=== PATIENT | female | born 1980 | race Caucasian/White ===

== ENCOUNTER 2024-03-31 17:52 | Outpatient (CLI) | payer BC, SELFPAY ==
--- OUTSIDE RECORDS SUMMARY | 2024-03-31 17:54 | XMS_ITS | Clinical Summary ---
Author Organization [employer] [facility] [employer] Address [place], [place] [address] Care Team Providers Care Shuttle Operator Name Role Phone Holly Perkins DO Primary Care Provider [phone] Allergies Active Allergy Reactions Criticality Noted Date Comments Kiwi Itching 11/05/2006 Medications Medication Sig Dispensed Refills Start Date End Date Status naproxen (ALEVE) 220 mg tablet Take 2 tablets by mouth 2 times daily with meals. 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 started antiviral at 30 weeks for concerns of possible HSV flare up, but no lesions at that time. Holly Perkins D.O. 10/31/2012 9:04 AM Started acyclovir at 30 weeks for symptoms of HSV-pain, no notable lesions seen. Continue through delivery at this time. Holly Perkins D.O. 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 Contraception 10/05/2009 06/10/2012 Other abnormal Papanicolaou smear of cervix and cervical HPV(795.09) 11/05/2006 07/16/2012 Overview: colpo 11/05 normal Contraceptive surveillance, unspecified 11/05/2006 10/05/2009 Immunizations Name Administration Dates Next Due Hepatitis B (Adult) 11/18/2003,06/24/2003,2002 Human Papilloma Virus Vaccine 04/16/2008, 008,12/27/2006 Influenza, IIV3 (Age >=3 years) 07/21/2012 MMR 02/11/1992 Rabies Vaccine 05/18/2016,05/11/2016,05/07/2016 ,05/04/2016 Td (Age >=7 Years) 05/17/2006,12/31/1996 Tdap 11/21/2012 Family History Medical History Relation Name Comments Heart Disease Father 2 stents 07/09 Hypertension Father Cancer-breast Maternal Aunt Cancer-breast Maternal Grandmother Heart Disease Maternal Grandmother Arthritis Mother Cancer-breast Paternal Aunt Cancer Paternal Grandfather lung Heart Disease Paternal Grandfather Psychiatric illness Paternal Grandmother depression Psychiatric illness Sister 2 depressi on Relation Name Status Comments Father Alive Maternal Aunt Maternal Grandfather Alive Maternal Grandmother CVA Mother Alive Paternal Aunt Paternal Grandfather lung ca , CHF Paternal Grandmother Alive Sister 1 Alive Sister 2 Social History Tobacco Use Types Packs/Day Years Used Date Smoking Tobacco: Former Cigarettes 0.3 2 0 01/01/2002 - 01/02/2004 Smokeless Tobacco: Never Tobacco Cessation:Counseling Given: Yes Alcohol Use Standard Drinks/Week Comments Yes 0 (1 standard drink = 0.6 oz pure alcohol) special occassions 0-1 per month PHQ-2 Answer Date Recorded PHQ-2 Score 1 12/29/2018 Sex and Gender Information Value Date Recorded Sex Assigned at Not on file Gender Identity Not on file Sexual Orientation Not on file Obstetrics History Para Term AB IAB SAB Ectopic Multiple Livin g Live Births 2 1 0 1 1 0 1 0 0 1 1 Date Outcome GA Total Labor Labor/2nd/3rd Weight Sex Type Anes PTL Madiha A1 A5 Name Clin 2012 34w 3d 2.77 kg (6 lb 1.7 oz) M C-Sec tion Spinal Y Livin g 9 9 Donte Trotter a Delivery Location:[facility] Comments:pPROM, active HSV 2016 SAB 5w0 d Last Filed Vital Signs Vital Sign Reading Time Taken Comments Blood Pressure 122/67 08/26/2019 6:19 PM REGIONAL LIAISON Pulse 71 08/26/2019 6:19 PM REGIONAL LIAISON Temperature 36.6 ??C (97.8 ??F) 08/26/2019 6:19 PM CS T Respiratory Rate 18 08/26/2019 6:19 PM REGIONAL LIAISON Oxygen Saturation 100% 08/26/2019 6:19 PM REGIONAL LIAISON Inhaled Oxygen Concentration - - Weight 54 kg (119 lb 0.8 oz) 08/26/2019 6:19 PM REGIONAL LIAISON Height 160 cm (5' 3) 08/26/2019 6:25 PM REGIONAL LIAISON Body Mass Index 21.09 08/26/2019 6:19 PM REGIONAL LIAISON Plan of Treatment Health Maintenance Due Date Last Done Comments Depression screening for age 12+ 12/30/2019 12/29/2018, 12/29/2018, 12/16/2017, Additional history exists BMI (ht and wt on same day) for age 18+ 06/15/2020 06/15/2019, 12/29/2018, 12/16/2017, Additional history exists Tetanus booster 11/21/2022 11/21/2012, 04/30, 12/31/1996 COVID-19 vaccine series ( season) 2023 Pap test for age 21-65 12/30/2023 9, 12/29/2018, 10/16/2013, Additional history exists Influenza for age 9-49 05/31/2024 07/21/2012 Tdap Completed 11/21/2012 HIV for age 15-65 Completed 06/03/2015, 06/19/2012 Hepatitis C screening for age 18-79 Completed 06/03/2015, 11/06/2005, 07/27/2004 Pneumococcal series for age 6-64 Aged Out No longer eligible based on patient's age to complete this topic Procedures Procedure Name Priority Date/Time Associated Diagnosis Comments BONDED STRUCTURES REPAIRER THIN PREP PAP SCREEN IMAGED Routine 12/29/2018 12:27 PM CDT Screening for cervical cancer ANTI HIV 1/2 Routine 06/03/2015 4:17 PM CDT Exposure to blood or body fluid ANTI HCV Routine 06/03/2015 4:17 PM CDT Exposure to blood or body fluid from Last 3 Months or Most Recently Relevant to Health Maintenance Results * BONDED STRUCTURES REPAIRER THIN PREP PAP SCREEN IMAGED (12/29/2018 12:27 PM CDT) Case Report Gynecologic Cytology Report ? Case: [id number] ? Authorizing Provider: ??Holly Perkins DO ? Collected: ? 12/29/2018 1227 ? Ordering Location: ? [facility] ?? Received: ?12/29/2018 1227 ? Clinic ? First Screen: ?Vasquez, Vickie ? Specimen: ?BONDED STRUCTURES REPAIRER ThinPrep Vial Screening, Cervical ? 01/07/2019 1:57 PM CDT [facility] INTERPRETATION/ RESULT NEGATIVE FOR INTRAEPITHELIAL LESION OR MALIGNANCY (NIL) (none) 01/07/2019 1:57 PM CDT [facility] NISM(S) Shift in ibis suggestive of bacterial vaginosis 01/07/2019 1:57 PM CDT [facility] SPECIMEN ADEQUACY Satisfactory for evaluation Endocervical component present 01/07/2019 1:57 PM CDT [facility] HPV REQUEST HPV and PAP 01/07/2019 1:57 PM CDT [facility] Date of LMP 12/18/2018 01/07/2019 1:57 PM CDT [facility] Last Pap Date 201301/07/2019 1:57 PM CDT [facility] Last Pap Result NIL 9 1:57 PM CDT [facility] Abnormal Pap or [place] Bx in last 5 years No 01/07/2019 1:57 PM [facility]T [facility] Menstrual Status Regular Periods 01/07/2019 1:57 PM CDT [facility] [place] Bx Done Today No 01/07/2019 1:57 PM CDT [facility] Additional Information None given 01/07/2019 1:57 PM T [facility] Automated Review Successful 01/07/2019 1:57 PM CDT [facility] Comment:Specimen processed s uccessfully by automated paper supervisor device, ThinPrep Imaging System, [employer] ANCILLARY TESTING BONDED STRUCTURES REPAIRER HPV Ordered, Please see separate report 01/07/2019 1:57 PM T [facility] Note The pap test is a screening technique, not a diagnostic procedure. ??It is used primarily to screen for squamous cancers and precursor lesions. ??Published studies have shown that it is subject to both false negative and false positive results. ??The pap test should not be used as the sole means to diagnose or exclude pre-malignant and malignant lesions. Cytology is screened and interpreted at [facility] - [address], [place] [address] and [facility] - [address] [place] [address]; [place] [address] and [facility] - [address]; [place] [address] and [facility] [address]; [place] [address] 01/07/2019 1:57 PM CDT [facility] Other (Cervical) Non-Blood / Unknown 12/29/2018 12:27 PM CDT 12/29/2018 12:27 PM CDT Holly Perkins DO PATHOLOGY/CYTOLOGY [facility] [address] [place] [address], [place] * ANTI HCV (06/03/2015 4:17 PM CDT) HEPATITIS C ANTIBODY Non-Reacti ve Non-Reacti ve 06/03/2015 8:34 PM CDT [facility] Blood specimen (specimen) BLOOD SPECIMEN / Unknown Venipuncture / Unknown 06/03/2015 4:17 PM CDT 06/03/2015 4:17 PM CDT Narrative [facility] - 06/03/2015 8:34 PM CDT Antibodies to HCV not detected; does not exclude the possibility of exposure to HCV. Holly Perkins DO SEND OUTS [facility] [address] [place] [address], [place] * ANTI HIV 1/2 (06/03/2015 4:17 PM CDT) HIV-1/HIV-2 ANTIBODY Non-Reacti ve Non-Reacti ve 06/03/2015 8:30 PM CDT [facility] Blood specimen (specimen) BLOOD SPECIMEN / Unknown Venipuncture / Unknown 06/03/2015 4:17 PM CDT 06/03/2015 4:17 PM CDT Narrative [facility]AL [facility] - 06/03/2015 8:30 PM CDT HIV-1 p24 and HIV-1/HIV-2 Ab not detected Holly Perkins DO SEND OUTS [facility] [address] [place] [address], from Last 3 Months or Most Recently Relevant to Health Maintenance Advance Directives * Full Code (Latest Code Status on File) Date Activated Date Inactivated Comments 01/01/2013 11:22 AM 01/04/2013 3:13 PM * Full Code Date Activated Date Inactivated Comments 01/01/2013 7:15 AM 01/01/2013 9:49 AM Care Teams Shuttle Operator Relationship Specialty Start Date End Date Holly Perkins DO [address] [place] [address] PCP - General 06/10/08
== END 2024-03-31 17:53 | disposition home or self-care (01) ==
PROVIDERS: PCP Family Medicine; Visit Provider Physician Assistant
DX: R39.15 Urgency of urination (principal)
CPT/HCPCS: 87086

== ENCOUNTER 2024-04-17 15:41 | Outpatient (CLI) | payer BC, SELFPAY ==
--- OUTSIDE RECORDS SUMMARY | 2024-04-17 15:43 | XMS_ITS | Clinical Summary ---
Author Organization [employer] [facility] [employer] [facility] Address [place], [place] [address] Care Team Providers Care Tunnel Kiln Operator Name Role Phone Holly Perkins DO Primary Care Provider Allergies Active Allergy Reactions Criticality Noted Date [...] 11/05 normal Contraceptive surveillance, unspecified 11/05/2006 10/05/2009 Encounters Date Type Department Care Team Description 04/01/2024 Lab Requisition [facility] [phone] Bere Perez PA-C from Last 3 Months Immunizations Name Administration Dates Next Due Hepatitis [...] tion Spinal Y Livin g 9 9 Eero Ladell a Delivery Location:[facility] Comments:pPROM, active HSV 2016 SAB 5w0 d Last Filed Vital Signs Vital Sign Reading Time Taken Comments Blood Pressure 122/67 08/26/2019 6:19 PM QUALITY CONTROL INSPECTOR Pulse 71 08/26/2019 6:19 PM QUALITY CONTROL INSPECTOR Temperature 36.6 ??C (97.8 ??F) 08/26/2019 6:19 PM CS T Respiratory Rate 18 08/26/2019 6:19 PM QUALITY CONTROL INSPECTOR Oxygen Saturation 100% 08/26/2019 6:19 PM QUALITY CONTROL INSPECTOR Inhaled Oxygen Concentration - - Weight 54 kg (119 lb 0.8 oz) 08/26/2019 6:19 PM QUALITY CONTROL INSPECTOR Height 160 cm (5' 3) 08/26/2019 6:25 PM QUALITY CONTROL INSPECTOR Body Mass Index 21.09 08/26/2019 6:19 PM QUALITY CONTROL INSPECTOR Plan of Treatment Health Maintenance Due Date Last Done Comments Depression screening for age 12+ 12/30/2019 12/29/2018, 12/29/2018, 12/16/2017, Additional history exists BMI (ht and wt on same day) for age 18+ 06/15/2020 06/15/2019, 12/29/2018, 12/16/2017, Additional history exists Tetanus booster 11/21/2022 11/21/2012, 04/30, 12/31/1996 COVID-19 vaccine series ( season) 2023 Colonoscopy through age 75 2024 Lipids for age 45-75 2024 12/29/2018, 11/19/19 15 Mammogram for age 45-75 2024 Influenza for age 9-49 05/31/2024 07/21/2012 Pap test for age 21-65 03/31/2029 4, 03/31/2024, 12/29/2018, Additional history exists Tdap Completed 11/21/2012 HIV for age 15-65 Completed 06/03/2015, 06/19/2012 Hepatitis C screening for age 18-79 Completed 06/03/2015, 11/06/2005, 07/27/2004 Pneumococcal series for age 6-64 Aged Out No longer eligible based on patient's age to complete this topic Procedures Procedure Name Priority Date/Time Associated Diagnosis Comments LAB TRACKING EVENT Routine 03/31/2024 5: 52 PM CDT DATA ENTRY ASSISTANT THIN PREP PAP SCREEN IMAGED Routine 03/31/2024 5:52 PM CDT HPV THIN PREP Routine 03/31/2024 5:52 PM CDT LIPID PANEL W REFLEX MEASURED LDL Routine 12/29/2018 12:23 PM CDT Screening cholesterol level ANTI HIV 1/2 Routine 06/03/2015 4:17 PM CDT Exposure to blood or body fluid ANTI HCV Routine 06/03/2015 4:17 PM CDT Exposure to blood or body fluid from Last 3 Months or Most Recently Relevant to Health Maintenance Results * LAB TRACKING EVENT (03/31/2024 5:52 PM CDT) Other (Other) Client Collect / Unknown 03/31/2024 5:52 PM CDT 04/01/2024 3:58 PM CDT Bere Perez PA-C LAB BILL ONLY [facility] [address] [place] [address], * DATA ENTRY ASSISTANT THIN PREP PAP SCREEN IMAGED (03/31/2024 5:52 PM CDT) Case Report Gynecologic Cytology Report ? Case: [id number] ? Authorizing Provider: ??Bere Perez PA-C ?Collected: ? 03/31/2024 1752 ? Ordering Location: ? [facility] ?Received: ?04/03/2024 1257 ? First Screen: ?Vandana, Amy ? Pathologist: ? Pratibha Fernandes ? MD Susan ? Specimen: ?DATA ENTRY ASSISTANT ThinPrep Vial Screening, Cervical ? 04/13/2024 11:07 AM [facility] INTERPRETATION/ RESULT NEGATIVE FOR INTRAEPITHELIAL LESION OR MALIGNANCY (NIL) (none) 04/13/2024 11:07 AM [facility] [employer] [facility]-C ENTRAL LABORATORY R NON-NEOPLASTIC FINDING(S) Parakeratosis Hyperkeratosis 04/13/2024 11:07 AM T [facility] SPECIMEN ADEQUACY Satisfactory for evaluation No endocervical component seen 04/13/2024 11:07 AM CDT [facility] [employer] [facility] HPV REQUEST HPV and PAP 04/13/2024 11:07 AM CDT [facility] Date of LMP 03/25/2024 04/13/2024 11:07 AM CDT [facility] Last Pap Date 04/13/2024 11:07 AM CDT [facility] Comment:2019 Last Pap Result NIL 11:07 AM CDT [facility] Abnormal Pap or [place] Bx in last 5 years No 04/13/2024 11:07 AM CDT [facility] Menstrual Status Regular Periods 04/13/2024 11:07 AM CDT [facility] [place] Bx Done Today No 04/13/2024 11:07 AM CDT [facility] Additional Information 04/13/2024 11:07 AM CDT [facility] Comment: Interpreted at [facility] - [address] [place], [place] [address], [place] [address] Automated Review Successful 04/13/2024 11:07 AM T [facility] Comment:Specimen processed s uccessfully by automated marine oil terminal superintendent device, ThinPrep Imaging System, [employer] ANCILLARY TESTING DATA ENTRY ASSISTANT HPV Ordered, Please see separate report 04/13/2024 11:07 AM T [facility] Note The pap test is a screening technique, not a diagnostic procedure. It is used primarily to screen for squamous cancers and precursor lesions. Published studies have shown that it is subject to both false negative and false positive results. The pap test should not be used as the sole means to diagnose or exclude pre-malignant and malignant lesions. 04/13/2024 11:07 AM T [facility] Other (Cervical) 03/31/2024 5:52 PM CDT 04/03/2024 12:57 PM CDT December Gualberto Perez PA-C PATHOLOGY/CYTOLOGY [facility] [address] [place] [id number], * HPV HIGH RISK (03/31/2024 5:52 PM CDT) TYPE 16 Negative Negative 04/07/2024 2:23 PM CDT [facility] TYPE 18 Negative Negative 04/07/2024 2:23 PM CDT [facility] OTHER HIGH RISK TYPES Negative Negative 04/07/2024 2:23 PM CDT [facility] Other (Cervical) 03/31/2024 5:52 PM CDT 04/03/2024 12:57 PM CDT Narrative [facility] - 04/07/2024 2:23 PM CDT HPV types 16, 18, 31, 33, 35, 39, 45, 51, 52, 56, 58, 59, 66 and 68 DNA were undetectable or below the pre-set threshold. Methodology: [employer] 4800 HPV Test December Gualberto Perez PA-C MICROBIOLOGY [facility] [address] [place] [address], * LIPID PANEL W REFLEX MEASURED LDL (12/29/2018 12:23 PM CDT) CHOLESTEROL,TOTAL 169 100 - 199 mg/dL 12/29/2018 4:15 PM CDT [facility] TRIGLYCERIDES 61 <150 mg/dL 12/29/2018 4:15 PM CDT [facility] HDL CHOLESTEROL 56 >40 mg/dL 9 4:15 PM CDT [facility] NON-HDL CHOLESTEROL 113 <145 mg/dl 12/29/2018 4:15 PM CDT [facility] CHOL/HDL RATIO 3.02 <4.50 12/29/2018 4:15 PM CDT [facility] LDL CHOLESTEROL 101 <=130 mg/dL 12/29/2018 4:15 PM CDT [facility] PROVIDER ORDERED STATUS RANDOM 12/29/2018 4:15 PM CDT [facility] Blood BLOOD SPECIMEN / Unknown Venipuncture / Unknown 12/29/2018 12:23 PM CDT 12/29/2018 12:23 PM CDT Holly Perkins DO CHEMISTRY [facility] [address] [place] [address], * ANTI HCV (06/03/2015 4:17 PM CDT) HEPATITIS C ANTIBODY Non-Reacti ve Non-Reacti ve 06/03/2015 8:34 PM CDT [facility] Blood specimen (specimen) BLOOD SPECIMEN / Unknown Venipuncture / Unknown 06/03/2015 4:17 PM CDT 06/03/2015 4:17 PM CDT Narrative [facility] - 06/03/2015 8:34 PM CDT Antibodies to HCV not detected; does not exclude the possibility of exposure to HCV. Holly Perkins DO SEND OUTS Performing Organization Address [facility]/ZIP Co de Phone Number [facility] [address] [place] [address], [place] * ANTI HIV 1/2 (06/03/2015 4:17 PM CDT) HIV-1/HIV-2 ANTIBODY Non-Reacti ve Non-Reacti ve 06/03/2015 8:30 PM CDT [facility] Blood specimen (specimen) BLOOD SPECIMEN / Unknown Venipuncture / Unknown 06/03/2015 4:17 PM CDT 06/03/2015 4:17 PM CDT Narrative [facility] - 06/03/2015 8:30 PM CDT HIV-1 p24 and HIV-1/HIV-2 Ab not detected Holly Perkins DO SEND OUTS [facility] LAB[facility] [address] [place] [address], from Last 3 Months or Most Recently Relevant to Health Maintenance Advance Directives * Full Code (Latest Code Status on File) Date Activated Date Inactivated Comments 01/01/2013 11:22 AM 01/04/2013 3:13 PM * Full Code Date Activated Date Inactivated Comments 01/01/2013 7:15 AM 01/01/2013 9:49 AM Care Teams Tunnel Kiln Operator Relationship Specialty Start Date End Date Holly Perkins [place] [place] [address] PCP - General 06/10/08
--- NOTE | 2024-04-17 16:00 | CRLHL7_ITS ---
For Patients: As a result of the Century Cures Act, medical imaging exams and procedure reports are released immediately into your electronic medical record. You may view this report before your referring provider. If you have questions, please contact your health care provider. CLINICAL HISTORY: Pelvic pain TECHNIQUE: 2D leslie scale ultrasound. In addition color Doppler and spectral Doppler analysis was performed of the pelvis using a transabdominal and transvaginal approach. FINDINGS: The myometrium has a normal uniform echotexture. The uterus measures 6.4 x 2.9 x 4.7 cm. The endometrial lining appears normal and measures 3.5 mm in thickness. The right ovary measures 2.7 x 1.3 x 1.6 cm in size and the left ovary measures 3.0 x 1.1 x 1.7 cm. The ovaries demonstrate normal arterial and venous blood flow on color Doppler and spectral Doppler analysis. There are no suspicious fluid collections within the cul-de-sac. Small cyst is present within the left ovary measuring 1.8 x 0.7 x 1.2 cm IMPRESSION: Small left ovarian cyst measures 1.8 cm. No ovarian torsion or excess pelvic free fluid. No uterine fibroid. Dictated by Alberto Armstrong MD @ 04/20/2024 11:52:35 AM (Electronically Signed)
== END 2024-04-17 15:42 | disposition home or self-care (01) ==
LOC: US 15:41
PROVIDERS: PCP Family Medicine; Visit Provider Physician Assistant
DX: R10.2 Pelvic and perineal pain (principal); N83.202 Unspecified ovarian cyst, left side
CPT/HCPCS: 76830; 76856; 93976

== ENCOUNTER 2025-03-18 12:44 | Outpatient (CLI) | payer BC, SELFPAY | END 2025-03-18 12:45 | disposition home or self-care (01) | LOC: LKVREF 12:44 | PROVIDERS: Visit Provider Otolaryngology | DX: G25.81 Restless legs syndrome (principal); Z13.0 Encounter for screening for diseases of the blood and blood-forming organs and certain disorders involving the immune mechanism | CPT/HCPCS: 82728 ==